=== PATIENT | female | born 1945 | race Caucasian/White ===

== ENCOUNTER 2019-01-30 16:23 | Inpatient (IN) ==
[2019-01-30] MEDS ORDERED: ALPRAZolam 0.5 MG TABLET PO PRN (19:02)
[2019-01-30] MEDS ORDERED: Ondansetron ODT 4 MG TAB.RAPDIS SL PRN (19:53)
[2019-01-30] MEDS: traZODone 50 MG TABLET PO SCH (22:00)
[2019-01-31 08:14] LABS: Basophils # 0.1 K/mcL (0.0-0.2); Basophils % 1.4 %; Eosinophils % 0.5 %; Hematocrit 33.2 % (35.3-44.9); Hemoglobin 11.6 g/dL (11.5-15.4); Immature Granulocytes % 1.3 % (0-4); Lymphocytes # 1.9 K/mcL (0.6-4.6); Lymphocytes % 22.2 %; Mean Corpuscular HGB Conc 34.9 g/dL (31.6-35.5); Mean Corpuscular Hemoglobin 33.4 pg (28.0-33.3); Mean Corpuscular Volume 95.7 fL (83.0-100.0); Mean Platelet Volume 9.2 fL (9.4-12.4); Monocytes # 1.2 K/mcL (0.0-1.3); Monocytes % 13.7 %; Neutrophils # 5.1 K/mcL (1.6-8.9); Nucleated Red Blood Cells 0.2 /100 WBC (0); Platelet Count 200 K/mcL (140-400); Red Blood Count 3.47 M/mcL (3.82-4.97); Red Cell Distribution Width 19.9 % (11.5-14.5); Segmented Neutrophils % 60.9 %; White Blood Count 8.4 K/mcL (4.3-11.1)
[2019-01-31 08:23] LABS: Prothrombin Time 11.5 Seconds (9.4-12.1)
[2019-01-31 08:25] LABS: Activated Partial Thrombo Time 34.9 Seconds (26.0-36.0)
[2019-01-31] MEDS ORDERED: Venlafaxine XR (24 HR) 75 MG CAP.ER.24H PO SCH (09:00)
[2019-01-31] MEDS: Magnesium Oxide 400 MG TABLET PO SCH (09:04)
[2019-01-31] MEDS: amLODIPine 5 MG TABLET PO SCH (09:04)
[2019-01-31] MEDS: Venlafaxine XR (24 HR) 150 MG CAP.ER.24H PO SCH (09:05)
[2019-01-31 09:28] LABS: BUN/Creatinine Ratio 27 (6-26); Blood Urea Nitrogen 13 mg/dL (8-23); Calcium 8.8 mg/dL (8.6-10.3); Carbon Dioxide 26 mEq/L (23-29); Chloride 103 mEq/L (98-107); Glucose 95 mg/dL (70-105); Osmolality,Calculated 280 (280-300); Potassium 3.8 mEq/L (3.5-5.1); Sodium 135 mEq/L (136-145); eGFR For African Americans > 60 (> 60); eGFR For Non-African Americans > 60 (> 60)
[2019-01-31] MEDS: Venlafaxine XR (24 HR) 37.5 MG CAP.ER.24H PO SCH (10:43)
--- NOTE | 2019-01-31 12:50 | Internal Med History&Physical ---
Date of Encounter: 01/31/19 Time of Encounter: 12:25 Assessment and Plan (1) Weakness Current visit: No Status: Acute PT and OT evaluations have been ordered. (2) Vitamin D deficiency Current visit: Yes Status: Acute Supplemental vitamin D will be ordered. (3) Hypothyroidism Current visit: Yes Status: Chronic Increase Synthroid to 100 g daily. Qualifiers: Hypothyroidism type: unspecified Qualified Code(s): E03.9 - Hypothyroidism, unspecified (4) Hypomagnesemia Current visit: No Status: Acute Continue magnesium oxide and monitor labs. Internal Medicine - H&P: HPI Chief complaint: Weakness, electrolyte imbalance Admitted From: Hospital to Hospital Transfer Plans for Post Hospital Care: Home History of present illness: Ms. Phillips is a 73 year old female who is hospitalized at [facility] January 1217 with hyponatremia, hypomagnesemia, hypothyroidism, and dehydration. She was seen by GI for abnormal LFTs. She had hepatic stenosis on ultrasound. She was discharged to [facility] rehabilitation therapy prior to returning to independent living at home. Records reports she drank 12 pack of beer almost daily for over 10 years. GI history is pertinent otherwise per cholecystectomy. Colonoscopy September 2010 showed small hyperplastic polyps in the rectum and sigmoid colon with sessile adenoma in the splenic flexure. Recommendation for repeat procedure in 3-5 years was made but apparently not completed. She denies disorders of her exocrine pancreas. Past Med Surg Social Fam HX - Past Medical History Medical history: hyperlipidemia, hypertension, thyroid disease Psychiatric history: anxiety, depression - Past Surgical History Surgical History: cholecystectomy - Social History Smoking Status: Current every day smoker Smokeless Tobacco Status: No Alcohol use: heavy Drug use: none - Family History Mother Living Status: Hx Family Cardiac Disorders: Yes Hx Family Genitourinary Disorders: Yes Hx Family Neurologic Disorders: Yes Father Living Status: Hx Family GI Disorders: Yes Internal Medicine - H&P: Meds ALPRAZolam [Xanax 0.5 MG Tablet] 0.5 mg PO HS PRN 08/21/15 [History] Omeprazole [PriLOSEC] 20 mg PO DAILY 08/21/15 [History] traZODone [TraZODone] 100 mg PO HS 08/21/15 [History] Amlodipine Besylate 10 mg PO DAILY 01/26/19 [History] Levothyroxine Sodium 50 mcg PO QAM 01/26/19 [History] Potassium Chloride [K-Tab ER] 20 meq PO DAILY 01/26/19 [History] Venlafaxine HCl [Venlafaxine HCl ER] 75 mg PO DAILY 01/26/19 [History] Venlafaxine HCl [Venlafaxine HCl ER] 150 mg PO DAILY 01/26/19 [History] Magnesium Oxide [Mag-Ox] 400 mg PO DAILY 30 Days #30 tablet 01/27/19 [Rx] Allergy/AdvReac Type Severity Reaction Status Date / Time promethazine [From Phenergan] AdvReac See Verified 01/26/19 12:37 Comments rofecoxib [From Vioxx] AdvReac See Verified 01/26/19 12:37 Comments All Systems PM: A 10-system review of systems was performed and is negative for pertinent findings except as documented above in the HPI. Review of systems: Gen.: Her weight has been stable at approximately 64 kg since August 2015 hospitalization Cardiovascular: She has history of hypertension but denies [place] heart failure angina DVT or pulmonary embolus Respiratory: She smoked since age 17 up to 2 packs per day. She denies chronic lung disease and does not use home oxygen GI: As per history of present illness : She denies hematuria dysuria or kidney stones Neurologic: She denies large distribution strokes or seizures. Endocrine: She has hypothyroidism. [facility] records reports she was not compliant taking Synthroid. Her dose was not changed at discharge although TSH was elevated. She denies diabetes and does not know her lipid status. Hematology/oncology: She denies blood disorders cancers or anemia Psychiatric: She has depression but denies anxiety other mental health issues [place] skeletal: She was found to have vitamin D level less than 5 at [facility]. She denies gout or other bone joint or muscle disorders. - Constitutional Vitals: Temp Pulse Resp BP Pulse Ox 98.1 F 86 16 135/87 97 01/31/19 07:35 01/31/19 07:35 01/31/19 07:35 01/31/19 07:35 01/31/19 07:35 Exam: Gen.: She is a well-developed well-nourished female resting comfortably in bed who appears in no acute distress HEENT: Head is atraumatic and normocephalic. Eyes: EOMI. There is no scleral icterus. Mouth: Mucosa is moist. Neck: Supple and nontender. There is no thyromegaly or adenopathy noted. Heart: Regular without murmurs gallops or ectopics Lungs: No wheezes or crackles are heard. Abdomen: Soft and nontender. No masses or guarding are noted. Extremities: There is no cyanosis edema or clubbing noted. Dorsalis pedis and posterior tibial pulses are trace to 1+ palpable bilaterally. Neurologic: Mental status: She is able to answer questions but is not very conversational. Cranial nerves: Smile is symmetric. Forehead wrinkles bilaterally. Tongue protrudes midline. EOMI. Motor: There is no pronator drift. Cerebellar: Finger to nose is intact bilaterally. Skin: Warm and dry Internal Med - H&P Results - Labs CBC & Chem 7: 01/31/19 08:03 01/31/19 08:03 Labs: Short CBC 01/31/19 Range/Units 08:03 WBC 8.4 (4.3-11.1) K/mcL Hgb 11.6 (11.5-15.4) g/dL Hct 33.2 L (35.3-44.9) % Plt Count 200 (140-400) K/mcL Neutrophils # 5.1 (1.6-8.9) K/mcL BMP 01/31/19 08:03 Sodium 135 L Potassium 3.8 Chloride 103 Carbon Dioxide 26 BUN 13 Creatinine 0.49 L Glucose 95 Calcium 8.8
[2019-01-31] MEDS: Cholecalciferol (D-3) 1,000 UNIT (25MCG) TABLET PO SCH (16:45)
[2019-02-01] MEDS: traZODone 50 MG TABLET PO SCH ×2 (00:46→22:04)
[2019-02-01 06:33] LABS: Alanine Aminotransferase 39 Units/L (7-52); Albumin 2.8 g/dL (3.5-5.7); Albumin/Globulin Ratio 1.1 (1.1-2.2); Alkaline Phosphatase 121 Units/L (34-104); Aspartate Amino Transferase 51 Units/L (13-39); BUN/Creatinine Ratio 34 (6-26); Bilirubin,Total 1.4 mg/dL (0.3-1.0); Blood Urea Nitrogen 16 mg/dL (8-23); Calcium 8.5 mg/dL (8.6-10.3); Carbon Dioxide 23 mEq/L (23-29); Chloride 102 mEq/L (98-107); Globulin 2.5 g/dL (2.4-3.5); Glucose 108 mg/dL (70-105); Osmolality,Calculated 276 (280-300); Sodium 132 mEq/L (136-145); Total Protein 5.3 g/dL (6.4-8.9); eGFR For African Americans > 60 (> 60); eGFR For Non-African Americans > 60 (> 60)
[2019-02-01] MEDS: Cholecalciferol (D-3) 1,000 UNIT (25MCG) TABLET PO SCH (09:47)
[2019-02-01] MEDS: Venlafaxine XR (24 HR) 150 MG CAP.ER.24H PO SCH (09:47)
[2019-02-01] MEDS: Magnesium Oxide 400 MG TABLET PO SCH (09:47)
[2019-02-01] MEDS: amLODIPine 5 MG TABLET PO SCH (09:47)
[2019-02-01] MEDS: Venlafaxine XR (24 HR) 37.5 MG CAP.ER.24H PO SCH (09:47)
--- NOTE | 2019-02-01 15:39 | Internal Med Progress Note ---
Date of Encounter: 02/01/19 Time of Encounter: 15:32 - Assessment and plan (1) Weakness Current Visit: No Status: Acute Assessment and plan: February 01. Continue PT and OT intervention. (2) Vitamin D deficiency Current Visit: Yes Status: Acute Assessment and plan: February 01. Continue supplemental vitamin D. (3) Hypothyroidism Current Visit: Yes Status: Chronic Assessment and plan: February 01. Continue Synthroid 100 g daily. Qualifiers: Hypothyroidism type: unspecified Qualified Code(s): E03.9 - Hypothyroidism, unspecified (4) Hypomagnesemia Current Visit: No Status: Acute Assessment and plan: February 01. Continue magnesium oxide. - Subjective Interval history: February 01. She has no new complaints and feels better. - Constitutional Vitals: Temp Pulse Resp BP Pulse Ox 97.9 F 98 18 132/85 97 02/01/19 08:23 02/01/19 08:23 02/01/19 08:23 02/01/19 08:23 02/01/19 08:23 Exam: She is resting comfortably in bed and appears in no acute distress. Her affect is more bright and cheerful than yesterday. I reviewed her medications and lab results. Internal Medicine: Result - Labs CBC & Chem 7: 01/31/19 08:03 02/01/19 04:30 Labs: BMP 02/01/19 04:30 Sodium 132 L Potassium 4.0 Chloride 102 Carbon Dioxide 23 BUN 16 Creatinine 0.47 L Glucose 108 H Calcium 8.5 L Liver Function 02/01/19 Range/Units 04:30 Total Bilirubin 1.4 H (0.3-1.0) mg/dL AST 51 H (13-39) Units/L ALT 39 (7-52) Units/L Alkaline Phosphatase 121 H (34-104) Units/L Albumin 2.8 L (3.5-5.7) g/dL - ABG Interpretation ABG results: PT/INR, D-dimer PT 11.5 Seconds (9.4-12.1) 01/31/19 08:03 Consult Discharge Plan - Plan Referrals: Kiya Dominique DO [Primary Care Provider] - 1 week
[2019-02-02] MEDS: Magnesium Oxide 400 MG TABLET PO SCH (08:46)
[2019-02-02] MEDS: Venlafaxine XR (24 HR) 37.5 MG CAP.ER.24H PO SCH (08:46)
[2019-02-02] MEDS: Venlafaxine XR (24 HR) 150 MG CAP.ER.24H PO SCH (08:46)
[2019-02-02] MEDS: amLODIPine 5 MG TABLET PO SCH (08:47)
[2019-02-02] MEDS: Cholecalciferol (D-3) 1,000 UNIT (25MCG) TABLET PO SCH (08:47)
[2019-02-02] MEDS: traZODone 50 MG TABLET PO SCH (20:21)
[2019-02-02] MEDS: Acetaminophen 325 MG TABLET PO PRN (20:22)
[2019-02-03] MEDS: Venlafaxine XR (24 HR) 37.5 MG CAP.ER.24H PO SCH (09:43)
[2019-02-03] MEDS: Cholecalciferol (D-3) 1,000 UNIT (25MCG) TABLET PO SCH (09:43)
[2019-02-03] MEDS: Venlafaxine XR (24 HR) 150 MG CAP.ER.24H PO SCH (09:43)
[2019-02-03] MEDS: amLODIPine 5 MG TABLET PO SCH (09:44)
[2019-02-03] MEDS: Magnesium Oxide 400 MG TABLET PO SCH (09:44)
--- NOTE | 2019-02-03 12:53 | Internal Med Progress Note ---
Date of Encounter: 02/03/19 Time of Encounter: 12:45 - Assessment and plan (1) Weakness Current Visit: No Status: Acute Assessment and plan: February 01. Continue PT and OT intervention. (2) Vitamin D deficiency Current Visit: Yes Status: Acute Assessment and plan: February 01. Continue supplemental vitamin D. (3) Hypothyroidism Current Visit: Yes Status: Chronic Assessment and plan: February 01. Continue Synthroid 100 g daily. Qualifiers: Hypothyroidism type: unspecified Qualified Code(s): E03.9 - Hypothyroidism, unspecified (4) Hypomagnesemia Current Visit: No Status: Acute Assessment and plan: February 01. Continue magnesium oxide. - Subjective Interval history: February 01. She has no new complaints and feels better. February 03. She has no new complaints. - Constitutional Vitals: Temp Pulse Resp BP Pulse Ox 98.0 F 116 16 113/77 98 02/03/19 07:30 02/03/19 09:40 02/03/19 07:30 02/03/19 09:40 02/03/19 09:40 Exam: She is resting comfortably on the side of the bed eating lunch and appears in no acute distress. Her affect is bright and cheerful. I reviewed her medications and lab results. Internal Medicine: Result - Labs CBC & Chem 7: 01/31/19 08:03 02/01/19 04:30 - ABG Interpretation ABG results: PT/INR, D-dimer PT 11.5 Seconds (9.4-12.1) 01/31/19 08:03 Consult Discharge Plan - Plan Referrals: Kiya Dominique DO [Primary Care Provider] - 1 week
[2019-02-03] MEDS: traZODone 50 MG TABLET PO SCH (22:44)
[2019-02-03] MEDS: Acetaminophen 325 MG TABLET PO PRN (22:44)
[2019-02-04] MEDS: Venlafaxine XR (24 HR) 37.5 MG CAP.ER.24H PO SCH (08:07)
[2019-02-04] MEDS: amLODIPine 5 MG TABLET PO SCH (08:07)
[2019-02-04] MEDS: Cholecalciferol (D-3) 1,000 UNIT (25MCG) TABLET PO SCH (08:07)
[2019-02-04] MEDS: Venlafaxine XR (24 HR) 150 MG CAP.ER.24H PO SCH (08:07)
[2019-02-04] MEDS: Magnesium Oxide 400 MG TABLET PO SCH (08:07)
[2019-02-04] MEDS: Acetaminophen 325 MG TABLET PO PRN (17:00)
[2019-02-04] MEDS: traZODone 50 MG TABLET PO SCH (22:31)
[2019-02-05] MEDS: amLODIPine 5 MG TABLET PO SCH (08:54)
[2019-02-05] MEDS: Venlafaxine XR (24 HR) 150 MG CAP.ER.24H PO SCH (08:54)
[2019-02-05] MEDS: Venlafaxine XR (24 HR) 37.5 MG CAP.ER.24H PO SCH (08:55)
[2019-02-05] MEDS: Magnesium Oxide 400 MG TABLET PO SCH (08:55)
[2019-02-05] MEDS: Cholecalciferol (D-3) 1,000 UNIT (25MCG) TABLET PO SCH (08:55)
[2019-02-05] MEDS: Acetaminophen 325 MG TABLET PO PRN (14:49)
[2019-02-05] MEDS: traZODone 50 MG TABLET PO SCH (21:59)
[2019-02-06] MEDS: Magnesium Oxide 400 MG TABLET PO SCH (08:04)
[2019-02-06] MEDS: Cholecalciferol (D-3) 1,000 UNIT (25MCG) TABLET PO SCH (08:05)
[2019-02-06] MEDS: Venlafaxine XR (24 HR) 37.5 MG CAP.ER.24H PO SCH (08:05)
[2019-02-06] MEDS: amLODIPine 5 MG TABLET PO SCH (08:05)
[2019-02-06] MEDS: Venlafaxine XR (24 HR) 150 MG CAP.ER.24H PO SCH (08:05)
--- NOTE | 2019-02-06 15:33 | Internal Med Progress Note ---
Date of Encounter: 02/06/19 Time of Encounter: 15:25 - Assessment and plan (1) Weakness Current Visit: No Status: Acute Assessment and plan: February 01. Continue PT and OT intervention. (2) Vitamin D deficiency Current Visit: Yes Status: Acute Assessment and plan: February 01. Continue supplemental vitamin D. (3) Hypothyroidism Current Visit: Yes Status: Chronic Assessment and plan: February 01. Continue Synthroid 100 g daily. Qualifiers: Hypothyroidism type: unspecified Qualified Code(s): E03.9 - Hypothyroidism, unspecified (4) Hypomagnesemia Current Visit: No Status: Acute Assessment and plan: February 01. Continue magnesium oxide. - Subjective Interval history: February 01. She has no new complaints and feels better. February 03. She has no new complaints. February 06. She has no new complaints. - Constitutional Vitals: Temp Pulse Resp BP Pulse Ox 98.5 F 85 16 122/79 97 02/06/19 09:00 02/06/19 09:00 02/06/19 09:00 02/06/19 09:00 02/06/19 09:00 Exam: She is resting comfortably in bed and appears in no acute distress. Her affect is overall cheerful. She is appropriate in conversation. I reviewed her medications and lab results. Internal Medicine: Result - Labs CBC & Chem 7: 01/31/19 08:03 02/01/19 04:30 - ABG Interpretation ABG results: PT/INR, D-dimer PT 11.5 Seconds (9.4-12.1) 01/31/19 08:03 Consult Discharge Plan - Plan Referrals: Kiya Dominique DO [Primary Care Provider] - 1 week
[2019-02-06] MEDS: Acetaminophen 325 MG TABLET PO PRN ×2 (16:32→21:19)
[2019-02-06] MEDS: traZODone 50 MG TABLET PO SCH (21:19)
[2019-02-07 07:19] VITALS: BP 118/80
[2019-02-07] MEDS: Cholecalciferol (D-3) 1,000 UNIT (25MCG) TABLET PO SCH (08:29)
[2019-02-07] MEDS: Magnesium Oxide 400 MG TABLET PO SCH (08:29)
[2019-02-07] MEDS: Venlafaxine XR (24 HR) 150 MG CAP.ER.24H PO SCH (08:30)
[2019-02-07] MEDS: Venlafaxine XR (24 HR) 37.5 MG CAP.ER.24H PO SCH (08:30)
[2019-02-07] MEDS: amLODIPine 5 MG TABLET PO SCH (08:30)
--- NOTE | 2019-02-07 14:26 | Discharge Summary ---
Date of Encounter: 02/07/19 Time of Encounter: 14:20 - Discharge Diagnosis (1) Weakness Priority: Primary Status: Acute (2) Vitamin D deficiency Priority: Secondary Status: Acute (3) Hypothyroidism Priority: Secondary Status: Chronic Qualifiers: Hypothyroidism type: unspecified Qualified Code(s): E03.9 - Hypothyroidism, unspecified (4) Hypomagnesemia Priority: Secondary Status: Acute Hospital course: Ms. Phillips is a 73 year old female who was hospitalized at [facility] January 1217 with hyponatremia, hypomagnesemia, hypothyroidism, and dehydration. She was seen by GI for abnormal LFTs. She had hepatic stenosis on ultrasound. She was discharged to [facility] swing bed rehabilitation therapy prior to returning to independent living at home. Initial orders were written by the discharging physicians at [facility]. I saw her on January 31 and performed a swing bed history and physical. She had physical therapy and occupational therapy evaluation with ongoing intervention. She made satisfactory progress. It was recommended she have a front wheel walker for DME upon discharge. Vitamin D level returned low at < 5. She was started on supplemental vitamin D 3000 international units daily. This will be continued at discharge and her PCP can monitor labs. TSH was elevated at 17.214 on 01/24/2019. Synthroid dose was increased to 100 g daily. The patient appealed her discharge with insurance but her appeal was denied. On February 07 she was discharged home. Home health services will be ordered. She will follow with her PCP Dr. Kiya Dominique within 1 week. - Time Spent with Patient Total time spent providing and/or coordinating discharge services: - Discharge Medications Prescriptions: New Levothyroxine [Synthroid] 100 mcg PO QAM@0630 #30 tablet Cholecalciferol (D-3) [Vitamin D] 3,000 unit PO DAILY tablet Continued Omeprazole [PriLOSEC] 20 mg PO DAILY ALPRAZolam [Xanax 0.5 MG Tablet] 0.5 mg PO HS PRN PRN Reason: Anxiety traZODone [TraZODone] 100 mg PO HS Amlodipine Besylate 10 mg PO DAILY Potassium Chloride [K-Tab ER] 20 meq PO DAILY Venlafaxine HCl [Venlafaxine HCl ER] 75 mg PO DAILY Venlafaxine HCl [Venlafaxine HCl ER] 150 mg PO DAILY Magnesium Oxide [Mag-Ox] 400 mg PO DAILY 30 Days #30 tablet Discontinued Levothyroxine Sodium 50 mcg PO QAM Home Medications: ALPRAZolam [Xanax 0.5 MG Tablet] 0.5 mg PO HS PRN 08/21/15 [History] Omeprazole [PriLOSEC] 20 mg PO DAILY 08/21/15 [History] traZODone [TraZODone] 100 mg PO HS 08/21/15 [History] Amlodipine Besylate 10 mg PO DAILY 01/26/19 [History] Potassium Chloride [K-Tab ER] 20 meq PO DAILY 01/26/19 [History] Venlafaxine HCl [Venlafaxine HCl ER] 75 mg PO DAILY 01/26/19 [History] Venlafaxine HCl [Venlafaxine HCl ER] 150 mg PO DAILY 01/26/19 [History] Magnesium Oxide [Mag-Ox] 400 mg PO DAILY 30 Days #30 tablet 01/27/19 [Rx] Cholecalciferol (D-3) [Vitamin D] 3,000 unit PO DAILY tablet 02/07/19 [Rx] Levothyroxine [Synthroid] 100 mcg PO QAM@0630 #30 tablet 02/07/19 [Rx] Allergies/Adverse Reactions: Allergy/AdvReac Type Severity Reaction Status Date / Time promethazine [From Phenergan] AdvReac See Verified 01/26/19 12:37 Comments rofecoxib [From Vioxx] AdvReac See Verified 01/26/19 12:37 Comments Date of admission: 01/30/19 19:24 Primary care physician: Marium Salter Consults: 01/30/19 18:53 Consult to Occupational Therapy [CONS] Routine Comment: eval, develop, implement POC Reason for Consult: eval, develop, implement POC Does patient have active BEDREST order?: No Is patient medically & hemodynamically stable?: Yes Consult to Physical Therapy [CONS] Routine Comment: eval, develop, implement POC Reason for Consult: eval, develop, implement POC Does patient have active BEDREST order?: No Is patient medically & hemodynamically stable?: Yes Consult to Tree Faller [CONS] Routine Reason for SW Consult: may need HH upon d/c, states wantin to go o [facility] [employer]. 01/30/19 23:48 Consult to Nutrition [CONS] Routine Comment: Consulting Provider: NUTRITION Reason for Dietary Consult: MST Score Other:: Weight loss Consult to Pastoral Services [CONS] Routine Comment: Consult to Tree Faller [CONS] Routine Reason for SW Consult: pt want to go to [facility] addiction treatment counselor for reported alcoholism. - Constitutional Vitals: Temp Pulse Resp BP Pulse Ox 97.8 F 94 16 118/80 96 02/07/19 07:16 02/07/19 07:16 02/07/19 07:16 02/07/19 07:16 02/07/19 07:16 - Patient Status Disposition: Home Health Service - Discharge Instructions Follow Up With: Kiya Dominique DO [Primary Care Provider] - 1 week - Diet and Activity Activity: as per physical therapy Diet: advance to your usual diet
--- NOTE | 2019-02-07 14:32 | Physician Discharge Referral ---
Home Health/Hosp Referral Info Transfer to: Home Health Attending Provider: [place] Provider in Charge Post Discharge: PCP (Kiya Dominique D.O.) - Diagnosis (1) Weakness Priority: Primary Status: Acute (2) Vitamin D deficiency Priority: Secondary Status: Acute (3) Hypothyroidism Priority: Secondary Status: Chronic (4) Hypomagnesemia Priority: Secondary Status: Acute - Respiratory Orders Smoking Cessation: Smoking cessation has been advised. For more information, call the [place] Tobacco Quit Line at 7-542-YGZY-NOW. - Diet/Nutrition Diet/Nutrition Orders: Cardiac - Activity Activity Orders: Walker - Services Needed Following services are medically necessary services: Nursing, Home Health Aide, Physical Therapy, Occupational Therapy - Transfer Medications Prescriptions: Levothyroxine [Synthroid] 100 mcg PO QAM@0630 #30 tablet Home Medications: ALPRAZolam [Xanax 0.5 MG Tablet] 0.5 mg PO HS PRN 08/21/15 [History] Omeprazole [PriLOSEC] 20 mg PO DAILY 08/21/15 [History] traZODone [TraZODone] 100 mg PO HS 08/21/15 [History] Amlodipine Besylate 10 mg PO DAILY 01/26/19 [History] Potassium Chloride [K-Tab ER] 20 meq PO DAILY 01/26/19 [History] Venlafaxine HCl [Venlafaxine HCl ER] 75 mg PO DAILY 01/26/19 [History] Venlafaxine HCl [Venlafaxine HCl ER] 150 mg PO DAILY 01/26/19 [History] Magnesium Oxide [Mag-Ox] 400 mg PO DAILY 30 Days #30 tablet 01/27/19 [Rx] Cholecalciferol (D-3) [Vitamin D] 3,000 unit PO DAILY tablet 02/07/19 [Rx] Levothyroxine [Synthroid] 100 mcg PO QAM@0630 #30 tablet 02/07/19 [Rx] Allergies/Adverse Reactions: Allergy/AdvReac Type Severity Reaction Status Date / Time promethazine [From Phenergan] AdvReac See Verified 01/26/19 12:37 Comments rofecoxib [From Vioxx] AdvReac See Verified 01/26/19 12:37 Comments Certification: Further, I certify that my clinical findings support that this patient is homebound (i.e. absences from home require considerable and taxing effort and are for medical reasons or religion services or infrequently or short duration when for other reasons) because: Homebound Reason: Leaving home requires considerable and taxing effort due to condition (Walking instability requiring front-wheeled walker.) Attestation: My signature below is to certify that this patient is under my care and that I, or nurse practitioner, or a physician's office services assistant working with me, has a [id number] encounter with this patient.
== END 2019-02-07 13:05 | disposition home health service (06) | DRG 945 ==
LOC: INPPIK 19:24
PROVIDERS: ADMIT Internal Medicine; ATTEND Internal Medicine